=== PATIENT | male | born 1990 | race Caucasian/White ===

== ENCOUNTER 2016-12-23 09:06 | Emergency (ER) | payer OTHER ==
[~2016-12-23] VITALS: Ht 182.9 cm; Wt 81.7 kg
[~2016-12-23 09:06] MED LIST: ALDACTONE100 MG PO; AMOXICILLIN 50500 M1 PO; ESTRACE2 M3 PO; MEDROLDOSEPACK PO; NAPROSYN500 MG PO; NOHOMEMEDICATIONS; NORCO 5-325 TA1 EACH PO; PHENERGAN 25 MG25 M1 PO; PROGESTERONE100 MG PO
[2016-12-23] MEDS ORDERED: FINASTERIDE5 MG PO (09:22)
[2016-12-23 10:19] VITALS: BP 110/63
== END 2016-12-23 10:20 | disposition home or self-care (01) ==
LOC: ER 09:06
DX: H10.11 Acute atopic conjunctivitis, right eye (principal); F17.210 Nicotine dependence, cigarettes, uncomplicated

== ENCOUNTER 2017-03-24 00:41 | Emergency (ER) | payer OTHER ==
[~2017-03-24] VITALS: Ht 182.9 cm; Wt 81.7 kg
[~2017-03-24 00:41] MED LIST changes: +FINASTERIDE5 MG PO
[2017-03-24 00:42] VITALS: BP 123/80
[2017-03-24] MEDS ORDERED: IBUPROFEN 600600 M1 PO (00:59)
== END 2017-03-24 01:07 | disposition home or self-care (01) ==
LOC: ER 00:41
DX: K08.89 Other specified disorders of teeth and supporting structures (principal); F10.10 Alcohol abuse, uncomplicated; F17.210 Nicotine dependence, cigarettes, uncomplicated

== ENCOUNTER 2018-11-14 23:42 | Emergency (ER) | payer OTHER ==
[~2018-11-14] VITALS: Ht 182.9 cm; Wt 86.2 kg
[~2018-11-14 23:42] MED LIST changes: +IBUPROFEN 600600 M1 PO; +KEFLEX500 M1 PO
[2018-11-14 23:50] VITALS: BP 121/62
== END 2018-11-15 00:18 | disposition home or self-care (01) ==
LOC: ER 23:42
DX: L03.114 Cellulitis of left upper limb (principal); F17.210 Nicotine dependence, cigarettes, uncomplicated